=== PATIENT | male | born 1985 | race Caucasian/White ===

== ENCOUNTER 2017-03-25 18:42 | Emergency (ER) | payer OTHER ==
[2017-03-25 19:07] VITALS: BP 133/72; PULSE 62; TEMP 98.8; BMI 29.2
[2017-03-25] MEDS ORDERED: DIPHTH,PERTUSS(ACELL),TET 0.5 ML DISP.SYRIN IM ONE (19:41)
--- NOTE | 2017-03-25 19:56 | PDOC ---
History of Present Illness - General Chief Complaint: Injury Stated Complaint: LACERATION Time Seen by Provider: 03/25/17 19:40 History Source: Patient Exam Limitations: No Limitations - History of Present Illness Initial Comments: 03/25/17 19:41 CHIEF COMPLAINT: Laceration to the webbing between the first and second fingers on the right hand HISTORY OF PRESENT ILLNESS: Patient is a 31-year-old male, no significant medical history currently on no medication presents for laceration to the webbing between the first and second fingers on the right hand. Patient reports that injury occurred using a drywall blade. Good range of motion. No tendon or ligament involvement. Tetanus not up-to-date. 03/25/17 20:01 Occurred: reports: just prior to arrival Severity: reports: moderate Method of Injury: reports: other (laceration) Modifying Factors: improves with: None Past History - Past Medical History Allergies/Adverse Reactions: Allergies Allergy/AdvReac Type Severity Reaction Status Date / Time Penicillins Allergy Verified 03/25/17 19:02 Home Medications: Ambulatory Orders NK [No Known Home Medication] 03/25/17 COPD: No DVT: No Dementia: No Diabetes: No - Surgical History Neurologic Surgery: Yes (Right femur) - Immunization History Immunization Up to Date: Yes - Suicide/Smoking/Psychosocial Hx Smoking History: Never smoked Have you smoked in the past 12 months: No Information on smoking cessation initiated: No Drug/Substance Use Hx: No Substance Use Type: None Review of Systems - Review of Systems Constitutional: No: Symptoms Reported HEENTM: No: Symptoms Reported Respiratory: No: Symptoms reported Cardiac (ROS): No: Symptoms Reported Integumentary: Yes: Other (laceration between the first and decond fingers. ) Neurological: No: Symptoms reported, Paresthesia, Tingling, Tremors All Other Systems: Reviewed and Negative *Physical Exam - Vital Signs Last Vital Signs Temp Pulse Resp BP Pulse Ox 98.8 F 62 16 133/72 97 03/25/17 19:03 03/25/17 19:03 03/25/17 19:03 03/25/17 19:03 03/25/17 19:03 - Physical Exam General Appearance: Yes: Appropriately Dressed. No: Apparent Distress Integumentary: positive: Other (4 centimeter laceration to the webbing between the first and second finger on the right hand) Neurologic: positive: Alert, Normal Mood/Affect Procedures - Laceration/Wound Repair Finger Wound Length: 2.6 to 5.0 cm Wound Explored: clean Wound's Depth, Shape: linear Irrigated w/ Saline: Yes Betadine Prep: Yes Anesthesia: 1% Lidocaine Amount of Anesthetic (ccs): 3 Wound Repaired With: Sutures Suture Size/Type: 5:0 Number of Sutures: 8 Layer Closure: No Progress: 03/25/17 19:59 Area cleansed and prepped sterilely, and tolerated procedure well Xeroform and bacitracin with cleaning and Ralf wrap placed Medical Decision Making - Medical Decision Making 03/25/17 20:00 A/P: Patient with hand laceration repaired as per's procedure note. Patient to follow-up in 10 days for suture removal *DC/Admit/Observation/Transfer Diagnosis at time of Disposition: Laceration of hand Qualifiers: Encounter type: initial encounter Foreign body presence: without foreign body Laterality: right Qualified Code(s): S61.411A - Laceration without foreign body of right hand, initial encounter - Discharge Dispostion Disposition: HOME Condition at time of disposition: Stable Admit: No - Referrals Referrals: ON STAFF,NOT [Primary Care Provider] - - Patient Instructions Additional Instructions: Keep area clean dry and intact Keep dressing on until tomorrow If any increased bleeding through the dressing return immediately to emergency department Keep area clean dry and intact bacitracin x3 days, then let it dry out Please return on 04/04/2016 after 11 PM for suture removal Please return immediately to emergency department with any increased redness, swelling, signs of infection - Post Discharge Activity Forms/Work/School Notes: Back to Work
== END 2017-03-25 20:07 | disposition home or self-care (01) ==
LOC: JERFT 18:42
PROC: 0JQJ0ZZ Repair Right Hand Subcutaneous Tissue and Fascia, Open Approach (ICD-10-PCS; principal; 2017-03-25)
DX: S61.411A Laceration without foreign body of right hand, initial encounter (principal); W27.8XXA Contact with other nonpowered hand tool, initial encounter; Y93.89 Activity, other specified; Y92.89 Other specified places as the place of occurrence of the external cause; Y99.8 Other external cause status
CPT/HCPCS: 90715; 99281-25